=== PATIENT | male | born 1970 | race Two or more races ===

== ENCOUNTER 2024-01-14 08:27 | Day surgery (SDC) | payer OTHER ==
[~2024-01-14] VITALS: Ht 167.6 cm; Wt 104.3 kg
--- NOTE | 2024-01-14 08:35 | NUR ---
PACIENTE ALERTA Y ORIENTADO X3 TRANSFERIDO DE [facility] EN [facility] CON PARAMEDICOS.
--- NOTE | 2024-01-14 10:58 | NUR ---
PACIENTE ALERTA Y ORIENTADO X3. SE TRANSFIERE A [facility] A [facility]OL[facility] PARA REALIZAR PROCEDIMIENTO DE ENDOSCOPIA.
[2024-01-14] MEDS ORDERED: GLUCAGON 1 MG VIAL IV ONE (12:45)
[2024-01-14] MEDS ORDERED: IOVERSOL 320 MG/ML - 50 ML VIAL IV ONE (12:45)
[2024-01-14 16:29] VITALS: BP 113/83; O2SAT 100
== END 2024-01-14 16:00 | disposition designated cancer center or children's hospital (05) ==
LOC: ER 08:27 → SEC-K 09:00 → ER 09:00 → AMB-ERCP 09:00
PROVIDERS: ATTEND Internal Medicine
DX: K80.50 Calculus of bile duct without cholangitis or cholecystitis without obstruction (principal); K80.20 Calculus of gallbladder without cholecystitis without obstruction

== ENCOUNTER → 2024-01-14 | Day surgery (SDC) | payer OTHER | END | disposition home or self-care (01) | LOC: CIR.AMB 08:00 | PROVIDERS: ATTEND Internal Medicine | DX: K80.50 Calculus of bile duct without cholangitis or cholecystitis without obstruction (principal) ==